=== PATIENT | female | born 1985 | race Caucasian/White ===

== ENCOUNTER 2018-09-13 11:22 | Emergency (ER) | payer BC ==
[2018-09-13 12:00] LABS: #Eosinphils 0.1 thou/uL (0.0-0.7); #Lymphocytes 2.9 thou/uL (1.20-3.40); #Monocytes 0.7 thou/uL (0.11-0.59); #Neutrophils 5.6 thou/uL (1.40-6.50); %Basophils 0.2 % (0.0-1.0); %Eosinophils 1.1 % (0.0-10.0); %Lymphocytes 30.9 % (21.0-51.0); %Monocytes 7.3 % (0.0-10.0); %Neutrophils 60.5 % (42.0-75.0); Mean Corpuscular HGB CONC 35.5 g/dL (32.0-36.0); Mean Corpuscular Hemoglobin 33.3 pg (27.0-31.0); Mean Corpuscular Volume 93.7 fL (78.0-98.0); Mean Platelet Volume 7.4 fL (7.4-10.4); Platelet Count 238 thou/uL (130-400); RBC Distribution Width 12.1 % (11.5-14.5); Red Blood Cell (RBC) Count 3.91 mill/uL (4.20-5.40); White Blood Cell (WBC) Count 9.3 thou/uL (4.8-10.8)
[2018-09-13 12:23] LABS: ALT (SGPT) 7 U/L (8-55); AST (SGOT) 11 U/L (5-34); Albumin 3.1 g/dL (3.5-5.0); Alkaline Phosphatase 86 U/L (40-150); Anion Gap 13 mmol/L (10-20); BUN (Urea Nitrogen) 5 mg/dL (7.0-18.7); Bilirubin, Total 0.5 mg/dL (0.2-1.2); Calc. Creatinine Clearance 0 mL/min (70-130); Calcium 8.3 mg/dL (7.8-10.44); Carbon Dioxide 20 mmol/L (22-29); Chloride 107 mmol/L (98-107); Estimated GFR-MDRD Greater than 90; Globulin 2.5 g/dL (2.4-3.5); Glucose 69 mg/dL (70-105); Potassium 3.5 mmol/L (3.5-5.1); Protein, Total 5.6 g/dL (6.0-8.3); Sodium 136 mmol/L (136-145)
--- NOTE | 2018-09-13 12:50 | ULT ---
BILATERAL VENOUS DOPPLER ULTRASOUND: HISTORY: Right lower extremity pain. FINDINGS: Mcneill scale and color Doppler sonography with spectral analysis was performed of the right common femo ral, femoral, popliteal, and posterior tibial, greater saphenous, and profunda femoral veins, demonst rating a normal sonographic appearance to each. IMPRESSION: No sonographic evidence for right lower extremity deep venous thrombosis. POS: LUBNA
== END 2018-09-13 14:56 | disposition home or self-care (01) ==
LOC: ERS 11:22
DX: O99.89 Other specified diseases and conditions complicating pregnancy, childbirth and the puerperium (principal); R07.9 Chest pain, unspecified; Z3A.36 36 weeks gestation of pregnancy
CPT/HCPCS: 36415; 80053; 85025; 93005; 93970; 94760

== ENCOUNTER 2018-09-15 11:37 | Day surgery (SDC) | payer BC ==
[2018-09-15 12:18] VITALS: BP 123/83; TEMP 98.2; BMI 32.3
[2018-09-15 13:02] LABS: Hemoglobin 13.9 g/dL (12.0-16.0); Mean Corpuscular HGB CONC 35.3 g/dL (32.0-36.0); Mean Corpuscular Hemoglobin 33.6 pg (27.0-31.0); Mean Corpuscular Volume 95.4 fL (78.0-98.0); Mean Platelet Volume 7.9 fL (7.4-10.4); Platelet Count 232 thou/uL (130-400); RBC Distribution Width 12.4 % (11.5-14.5); Red Blood Cell (RBC) Count 4.13 mill/uL (4.20-5.40); White Blood Cell (WBC) Count 10.8 thou/uL (4.8-10.8)
[2018-09-15 13:21] LABS: AST (SGOT) 10 U/L (5-34); Anion Gap 11 mmol/L (10-20); BUN (Urea Nitrogen) Less than 4 mg/dL (7.0-18.7); Calc. Creatinine Clearance 220 mL/min (70-130); Calcium 8.7 mg/dL (7.8-10.44); Carbon Dioxide 22 mmol/L (22-29); Chloride 107 mmol/L (98-107); Estimated GFR-MDRD Greater than 90; Glucose 69 mg/dL (70-105); Potassium 3.3 mmol/L (3.5-5.1); Sodium 137 mmol/L (136-145)
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
[2018-09-15] MEDS ORDERED: Famotidine 20 MG TAB PO SCH (14:15)
--- NOTE | 2018-09-15 18:21 | DIS ---
DATE OF ADMISSION: 09/15/2018 DATE OF DISCHARGE: 09/15/2018 TIME OF SERVICE: 1735 hours. HOSPITAL COURSE: Ms. Hameed was placed in observation status by Dr. Saenz earlier today at 36 weeks and 6 days with complaints of intermittent chest pain, hot flashes, lightheadedness, thoughts of vision, and not feeling right. Since admission, she is being given medication for heartburn and been observed with continuous monitoring. EKG was normal sinus rhythm, normal EKG with a pulse of 88, and no abnormalities noted. Physical examination is unchanged for admission. She is in no acute distress. She has a category 1 heart rate tracing with rare contractions. Cervical exam was not repeated as noted to be unremarkable in the office. LABORATORY DATA: White count is 10.8, hematocrit 39.5, and normal platelets. Potassium is 3.3, creatinine is 0.51, and glucose is 69. Protein to creatinine ratio is very low. Blood pressures have remained one teens to 120s/70s throughout. IMPRESSION: At 36 and 6 weeks gestation with no evidence of cardiac abnormality, pulmonary embolus, or preeclampsia. Suspect mild anxiety with indigestion. PLAN: Discharge home. [id number] Pepcid versus Maalox and keep scheduled followup with Dr. Lindquist in 3 days. ER precautions. Job ID: [id number]
== END 2018-09-15 17:50 | disposition home or self-care (01) ==
LOC: L&D/OP 11:37
PROVIDERS: ATTEND Student in an Organized Health Care Education/Training Program
DX: O99.89 Other specified diseases and conditions complicating pregnancy, childbirth and the puerperium (principal); R07.9 Chest pain, unspecified; R42 Dizziness and giddiness; Z3A.36 36 weeks gestation of pregnancy
CPT/HCPCS: 36415; 80048; 82570; 84156; 84450; 84484; 85027; 93005; 93010; 99283

== ENCOUNTER 2018-09-18 18:44 | Inpatient (IN) | payer BC ==
[~2018-09-18 18:44] MED LIST: Bupivacaine 0.25% HCL 30 ML VIAL ONE
[2018-09-18 19:28] VITALS: BMI 32.3
[2018-09-18] MEDS ORDERED: Carboprost 250 MCG/ML AMP IM PRN (19:49)
[2018-09-18] MEDS ORDERED: Methylergonovine 0.2 MG/ML VIAL IM PRN (19:49)
[2018-09-18] MEDS ORDERED: Diphenoxylate HCl/Atropine Tablet PO PRN (19:49)
[2018-09-18] MEDS ORDERED: Ondansetron PF 4 MG/2 ML Vial IVP PRN (19:49)
[2018-09-18] MEDS ORDERED: Butorphanol Tartrate 1 MG/ML VIAL SLOW IVP PRN (19:49)
[2018-09-18] MEDS ORDERED: NS / Oxytocin 40 units/1000ml 1,000 ML IV PRN (19:49)
[2018-09-18] MEDS ORDERED: Lidocaine 1% (PF) 30 ML VIAL SC PRN (19:49)
[2018-09-18] MEDS ORDERED: Promethazine HCl 25 MG/ML VIAL IM PRN (19:49)
[2018-09-18] MEDS ORDERED: Zolpidem Tartrate 5 MG TAB PO PRN (19:49)
[2018-09-18] MEDS ORDERED: Acetaminophen 500 MG TAB PO PRN (19:49)
[2018-09-18] MEDS ORDERED: Ibuprofen 800 MG TAB PO PRN (19:49)
[2018-09-18] MEDS ORDERED: NS w/ Oxytocin 10 units 500 ML IV SCH (20:00)
[2018-09-18] MEDS: Misoprostol 100 MCG TAB VAG SCH ×2 (20:21→23:39)
[2018-09-18 20:25] LABS: Hemoglobin 13.5 g/dL (12.0-16.0); Mean Corpuscular HGB CONC 34.7 g/dL (32.0-36.0); Mean Corpuscular Volume 94.9 fL (78.0-98.0); Mean Platelet Volume 7.9 fL (7.4-10.4); Platelet Count 239 thou/uL (130-400); RBC Distribution Width 12.4 % (11.5-14.5); Red Blood Cell (RBC) Count 4.09 mill/uL (4.20-5.40); White Blood Cell (WBC) Count 11.7 thou/uL (4.8-10.8)
[2018-09-18 20:45] LABS: ALT (SGPT) Less than 7 U/L (8-55); AST (SGOT) 13 U/L (5-34); Albumin 3.2 g/dL (3.5-5.0); Alkaline Phosphatase 92 U/L (40-150); Anion Gap 14 mmol/L (10-20); BUN (Urea Nitrogen) 5 mg/dL (7.0-18.7); Bilirubin, Total 0.6 mg/dL (0.2-1.2); Calc. Creatinine Clearance 229 mL/min (70-130); Calcium 8.9 mg/dL (7.8-10.44); Carbon Dioxide 19 mmol/L (22-29); Chloride 106 mmol/L (98-107); Estimated GFR-MDRD Greater than 90; Globulin 3.2 g/dL (2.4-3.5); Glucose 67 mg/dL (70-105); Potassium 3.3 mmol/L (3.5-5.1); Protein, Total 6.4 g/dL (6.0-8.3); Sodium 136 mmol/L (136-145)
[2018-09-18 21:03] LABS: Syphilis Antibody Nonreactive (Nonreactive); Syphilis Antibody Index 0.03 S/CO (<1.00 Non-Reactive)
[2018-09-18 22:04] LABS: Bilirubin Negative (Negative); Blood, Urine Negative (Negative); Clarity CLEAR (Clear); Glucose, Urine (Dipstick) Negative (Negative); Leukocyte Negative (Negative); Nitrite Negative (Negative); Protein, Urine (Dipstick) Trace mg/dL (Neg-Trace); Specific Gravity, Urine 1.022 (1.002-1.036)
[2018-09-18 22:06] LABS: Bacteria/HPF None Seen HPF (None Seen); Hyaline Casts/LPF 0-3 HYALINE CAST LPF (0-3 Hyaline); Pathc Cast-AUWi Flag 0.68 (0-2.49); WBC/HPF 0-3 HPF (0-3)
[2018-09-19 00:28] LABS: Hep B Surf Ag Non-Reactive S/CO (NonReactive)
[2018-09-19] MEDS: Lactated Ringer's 1,000 ML IV SCH ×3 (05:00→18:27)
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
[2018-09-19] MEDS ORDERED: Fentanyl 4 mcg/Bup 0.1% Cadd 100 ML ONE (08:53)
[2018-09-19] MEDS ORDERED: Fentanyl 100 MCG/2 ML VIAL ONE (09:15)
[2018-09-19] MEDS ORDERED: Bupivacaine 0.5% 10 ML VIAL ONE (09:16)
[2018-09-19] MEDS ORDERED: Ondansetron PF 4 MG/2 ML Vial IVP PRN ×2 (09:41→18:28)
[2018-09-19] MEDS ORDERED: Acetaminophen 325 MG TAB PO PRN (09:41)
[2018-09-19] MEDS ORDERED: Eucerin (Mineral Oil/Petrolatum,White) 30 gm Jar TOP PRN (09:41)
[2018-09-19] MEDS ORDERED: ePHEDrine/0.9% NaCl/PF SYRINGE 50 mg/10 ml SLOW IVP PRN (09:41)
[2018-09-19] MEDS ORDERED: Naloxone HCl 0.4 mg/ml Vial IVP PRN ×2 (09:41)
[2018-09-19] MEDS ORDERED: Promethazine HCl 25 MG/ML VIAL IM PRN (09:41)
[2018-09-19] MEDS ORDERED: diphenhydrAMINE 50 MG/ML VIAL IVP PRN (09:41)
[2018-09-19] MEDS ORDERED: Lactated Ringer's 500 ML IV PRN (09:41)
[2018-09-19] MEDS ORDERED: Fentanyl 4 mcg/Bupivacaine 0.1% Cassette 100 ML EPIDURAL SCH (09:45)
[2018-09-19] MEDS ORDERED: Communication Order-Pharmacy FS SCH (09:45)
--- NOTE | 2018-09-19 12:49 | PDOC.LDPN ---
Labor & Delivery Progress Note - Subjective Subjective: comfortable - Objective Vital signs reviewed and normal: yes General: NAD Uterine fundus: non tender Dilation: 5 Effacement: 75% Station: -2 FHT: category 1 [place] contractions every: 4min Plan: labor augmentation
[2018-09-19] MEDS ORDERED: Lanolin Ointment 7 GM TUBE TOP PRN (18:28)
[2018-09-19] MEDS ORDERED: Milk Of Magnesia 30 ML UDCUP PO PRN (18:28)
[2018-09-19] MEDS ORDERED: Bisacodyl 10 MG SUPP PR PRN (18:28)
[2018-09-19] MEDS: Misoprostol 100 MCG TAB VAG SCH ×2 (18:51→18:52)
[2018-09-19] MEDS ORDERED: NS / Oxytocin 40 units/1000ml 1,000 ML IV SCH (19:00)
[2018-09-19] MEDS ORDERED: Adacel (T-DAP) 0.5 ML SYRINGE IM ONE (21:00)
[2018-09-19] MEDS: Docusate Calcium (SURFAK) 240 MG CAP PO SCH (21:32)
[2018-09-19] MEDS: Ibuprofen 800 MG TAB PO SCH (23:47)
--- NOTE | 2018-09-20 02:48 | PDOC.PP ---
Post Progress Note Post Day #: 1 Subjective: Patient doing well. No significant overnight events. Tolerating PO. Ambulating without difficulty. PO intake tolerated: yes Flatus: yes Ambulation: yes Vital Signs (12 hours) Temp Pulse Resp BP Pulse Ox 09/19/18 23:40 97.9 F 77 18 114/63 09/19/18 20:30 98.2 F 71 18 114/67 97 09/19/18 18:28 97.9 F 80 Weight Weight 90.718 kg - Physical Examination General: NAD Cardiovascular: no m/r/g, RRR Respiratory: clear to auscultation bilaterally, non-labored breathing Abdominal: + bowel sounds, lochia (like that of period), no distention, appropriately TTP Fundus firm & at: below umbilicus Neurological: no gross focal deficits Psychiatric: A&Ox3, normal affect Result Diagrams: 09/20/18 07:05 09/18/18 20:08 Additional Labs: Post Labs Blood Type A POSITIVE 09/18/18 20:59 Hep Bs Antigen Non-Reactive S/CO (NonReactive) 09/18/18 20:08 (1) Term delivered Code(s): O80 - ENCOUNTER FOR FULL-TERM UNCOMPLICATED DELIVERY Status: Acute (2) (spontaneous vaginal delivery) Code(s): O80 - ENCOUNTER FOR FULL-TERM UNCOMPLICATED DELIVERY Status: Acute (3) PIH ( induced hypertension) Code(s): O13.9 - GESTATIONAL HTN W/O SIGNIFICANT PROTEINURIA, UNSP TRIMESTER Status: Acute - Assessment/Plan 33 year old at 37+ wks delivered TAGA via Routine PP care - PPD #1 s/p - VSS, afebrile - Doing well, appropriate milestones, routine advances - Rh pos, RImm gHTN - PIH workup on admission negative - BP's very well controlled PP Dispo: Plan for possible d/c home later this afternoon pending infant's bilirubin level around 15:00. Patient does desire to go home if possible. Addendum - Attending - Attending Attestation Date/Time: 09/21/18 1941 I personally evaluated the patient and discussed the management with Dr. Castellon I agree with the History, Examination, Assessment and Plan documented above with any addition or exceptions noted below.
[2018-09-20] MEDS: Ibuprofen 800 MG TAB PO SCH ×3 (06:48→21:42)
[2018-09-20 07:19] LABS: Hemoglobin 13.7 g/dL (12.0-16.0); Mean Corpuscular HGB CONC 34.4 g/dL (32.0-36.0); Mean Corpuscular Hemoglobin 32.9 pg (27.0-31.0); Mean Corpuscular Volume 95.5 fL (78.0-98.0); Mean Platelet Volume 7.6 fL (7.4-10.4); Platelet Count 238 thou/uL (130-400); RBC Distribution Width 12.5 % (11.5-14.5); Red Blood Cell (RBC) Count 4.17 mill/uL (4.20-5.40); White Blood Cell (WBC) Count 15.4 thou/uL (4.8-10.8)
[2018-09-20] MEDS: Ferrous Sulfate 325 MG TAB PO SCH ×2 (09:04→15:09)
[2018-09-20] MEDS: Docusate Calcium (SURFAK) 240 MG CAP PO SCH ×2 (09:04→21:42)
--- NOTE | 2018-09-21 04:15 | PDOC.PP ---
Post Progress Note Post Day #: 2 Subjective: Doing well PO intake tolerated: yes Flatus: yes Ambulation: yes Vital Signs (12 hours) Temp Pulse Resp BP 09/20/18 19:40 98.0 F 87 18 120/79 Weight Weight 200 lb Past vitals reviewed. BP max was 131/86 w/o sxs of CORNELIUS; afebrile last 24 hours; pulse normal - Physical Examination General: NAD Cardiovascular: no m/r/g, RRR Respiratory: clear to auscultation bilaterally, non-labored breathing Abdominal: + bowel sounds, lochia, no distention, appropriately TTP Extremities: negative homans (B) Neurological: no gross focal deficits Psychiatric: A&Ox3, normal affect Result Diagrams: 09/20/18 07:05 09/18/18 20:08 Additional Labs: Post Labs Blood Type A POSITIVE 09/18/18 20:59 Hep Bs Antigen Non-Reactive S/CO (NonReactive) 09/18/18 20:08 (1) (spontaneous vaginal delivery) Code(s): O80 - ENCOUNTER FOR FULL-TERM UNCOMPLICATED DELIVERY Status: Acute - Assessment/Plan A/P: PPD2 s/p -Gestational HTN with BPs below cutoff for PIH... No SXS of CORNELIUS nor visual changes, no RUQ pain...stable and well. Baby under bili lights this AM WE will plan on PM dsch to further watch BPs today, and watch baby bili levels. No need for BP meds as under 140/90 Recommened BP check in 72 hours Home with OTC motrin
[2018-09-21] MEDS: Ibuprofen 800 MG TAB PO SCH (05:21)
[2018-09-21] MEDS: Ferrous Sulfate 325 MG TAB PO SCH (07:19)
[2018-09-21] MEDS: Docusate Calcium (SURFAK) 240 MG CAP PO SCH (08:02)
[2018-09-21 08:51] VITALS: BP 127/65; TEMP 98.3
--- NOTE | 2018-10-07 22:09 | OP ---
DATE OF PROCEDURE: 09/19/2018 The patient delivered a female on 09/19/2018 at 1443 hours by an uncomplicated vaginal delivery. Apgars were 8 and 8. Weight was 6 pounds and 6 ounces. Placenta was delivered, followed by Pitocin infusion. The quantitative blood loss was 79 mL. There were no lacerations. The delivering physician is Dr. Efren Hastings. Counts were correct. Mother and baby were stable. There was a loose nuchal x1. Mother and baby were stable in the room in the immediate . Job ID: [id number]
== END 2018-09-21 10:35 | disposition home or self-care (01) | DRG 807 ==
LOC: L&D 18:44 → 3SW 09-19 20:48
PROVIDERS: ADMIT Student in an Organized Health Care Education/Training Program; ATTEND Student in an Organized Health Care Education/Training Program
PROC: 3E0P7VZ Introduction of Hormone into Female Reproductive, Via Natural or Artificial Opening (ICD-10-PCS; 2018-09-18)
PROC: 10E0XZZ Delivery of Products of Conception, External Approach (ICD-10-PCS; principal; 2018-09-19)
PROC: 10907ZC Drainage of Amniotic Fluid, Therapeutic from Products of Conception, Via Natural or Artificial Opening (ICD-10-PCS; 2018-09-19)
DX: O13.4 Gestational [pregnancy-induced] hypertension without significant proteinuria, complicating childbirth (principal); Z37.0 Single live birth; O69.81X0 Labor and delivery complicated by cord around neck, without compression, not applicable or unspecified; Z3A.37 37 weeks gestation of pregnancy
CPT/HCPCS: 36415; 51702; 80048; 80053; 81001; 82570; 84156; 84450; 84484; 85027; 86780; 86850; 86900; 86901; 87340; 93005; 93010; 99283; J3010; J3490; S0020

== ENCOUNTER 2018-12-14 12:16 | Emergency (ER) | payer BC ==
[2018-12-14] MEDS ORDERED: HYDROcodone/Acetaminophen 5/325 mg Tablet ONE (13:09)
--- NOTE | 2018-12-15 07:35 | RAD ---
EXAM: XR Ankle Lt 3 View STANDARD PROVIDED CLINICAL HISTORY: Pain COMPARISON: None FINDINGS: Lateral malleolar soft tissue swelling. Small ossific density adjacent to the tip of the lateral mall eolus may reflect avulsion fracture. No additional fracture is evident. Alignment appears anatomic. Joint spaces appear preserved. Plantar calcaneal enthesophyte formation. IMPRESSION: Possible avulsion fracture involving the lateral malleolus.
== END 2018-12-14 13:12 | disposition home or self-care (01) ==
LOC: SCSER 12:16
DX: S82.62XA Displaced fracture of lateral malleolus of left fibula, initial encounter for closed fracture (principal); X50.9XXA Other and unspecified overexertion or strenuous movements or postures, initial encounter